=== PATIENT | male | born 1950 | race African-American/Black ===

== ENCOUNTER 2025-02-19 07:01 | Inpatient (IN) | payer MEDICARE, OTHER ==
[~2025-02-19] VITALS: Ht 167.6 cm; Wt 77.2 kg
[~2025-02-19 07:01] MED LIST: ANESTHESIA TRAY IN PYXIS 1 EA TRAY MC ONE; LIDOCAINE 2%-EPI 1:100,000 30 ML VIAL ONE; VANCOMYCIN 1 GM VIAL ONE; dexaMETHasone SOD PHOSPHATE 1 ML ONE
[2025-02-19] MEDS ORDERED: LIDOCAINE 2% JEL UROJET 10 ML MM ONE (07:08)
[2025-02-19] MEDS ORDERED: KETAMINE HCL (500MG/10ML) 50 MG/ML VIAL ONE (07:09)
[2025-02-19] MEDS ORDERED: MIDAZOLAM HCL 2 MG/2ML VIAL ONE (07:09)
[2025-02-19] MEDS ORDERED: SUGAMMADEX SODIUM 200 MG/2 ML VIAL IV ONE (07:09)
[2025-02-19] MEDS ORDERED: FENTANYL PF 100MCG/2ML AMPUL ONE (07:09)
[2025-02-19] MEDS ORDERED: ROCURONIUM BROMIDE 50 MG/5 ML ONE (07:10)
[2025-02-19] MEDS ORDERED: FAMOTIDINE/PF INJ 20 MG/2 ML VIAL IV ONE (07:10)
[2025-02-19] MEDS ORDERED: OXYMETAZOLINE HCL NASAL SPRAY 30 ML BOTTLE NS ONE (07:10)
[2025-02-19 10:05] VITALS: BP 138/67; TEMP 97.5; O2SAT 98
[2025-02-19 10:20] VITALS: BP 134/64; TEMP 97.8; O2SAT 98
[2025-02-19 10:35] VITALS: BP 132/66; TEMP 97.6; O2SAT 98
[2025-02-19] MEDS ORDERED: ACETAMINOPHEN 325 MG TABLET PO PRN ×2 (11:00→13:30)
[2025-02-19] MEDS ORDERED: ONDANSETRON HCL/PF 4 MG/2 ML VIAL IV PRN (11:00)
[2025-02-19] MEDS: IV NS 0.9% 1,000 ML IV PRN (11:27)
[2025-02-19] MEDS ORDERED: GABA300C PO (12:16)
[2025-02-19] MEDS ORDERED: TAMS-12 PO (12:16)
[2025-02-19] MEDS ORDERED: MELA5TAB PO (12:16)
[2025-02-19] MEDS ORDERED: LEVO200T PO (12:16)
[2025-02-19] MEDS ORDERED: TRAZ150T75 PO (12:16)
[2025-02-19] MEDS ORDERED: PARO25TA15 PO (12:16)
[2025-02-19] MEDS ORDERED: OXYB15TA19 PO (12:16)
[2025-02-19] MEDS ORDERED: MAGNESIUM HYDROXIDE 30 ML UDC PO PRN (13:30)
[2025-02-19] MEDS ORDERED: ONDANSETRON HCL/PF 4 MG/2 ML VIAL IVP PRN (13:30)
[2025-02-19] MEDS: MENTHOL/CETYLPYRD (CEPACOL) 1 LOZ LOZENGE PO PRN (15:28)
[2025-02-19 16:00] VITALS: BP 144/63; TEMP 97.2; O2SAT 96
[2025-02-19] MEDS: GABAPENTIN 300 MG CAPSULE PO SCH (17:21)
[2025-02-19] MEDS ORDERED: TRAZODONE 50 MG TABLET PO SCH (18:00)
[2025-02-19] MEDS: VANCOMYCIN 1 GM in IV D5W 250ml IV SCH (18:08)
[2025-02-19 20:00] VITALS: BP 135/68; TEMP 97.9; O2SAT 96
[2025-02-19] MEDS: TRAZODONE 50 MG TABLET PO SCH (20:18)
[2025-02-19] MEDS: TAMSULOSIN 0.4 MG CAP.SR.24H PO SCH (20:18)
[2025-02-19] MEDS: MAG HYDROX/AL HYDROX/SIMETH 30 ML UDC PO PRN (20:18)
[2025-02-19] MEDS: HYDROMORPHONE 1 MG/1 ML DISP.SYRIN IV PRN (21:20)
[2025-02-20 08:00] VITALS: BP 137/59; TEMP 97.7; O2SAT 98
[2025-02-20] MEDS: PANTOPRAZOLE 40 MG VIAL IV SCH (08:08)
[2025-02-20] MEDS: LEVOTHYROXINE SODIUM 100 MCG TABLET PO SCH (08:08)
[2025-02-20] MEDS: OXYBUTYNIN CHLORIDE ER 5 MG TAB PO SCH (08:09)
[2025-02-20] MEDS ORDERED: TAMSULOSIN 0.4 MG CAP.SR.24H PO SCH ×2 (09:00→21:00)
[2025-02-20] MEDS ORDERED: PAROXETINE HCL 25 MG PO SCH (09:00)
== END 2025-02-20 10:20 | disposition home or self-care (01) | DRG 141 ==
LOC: DS 07:01 → MED 10:30
PROVIDERS: ATTEND Internal Medicine
PROC: 0NUT07Z Supplement Right Mandible with Autologous Tissue Substitute, Open Approach (ICD-10-PCS; 2025-02-19)
PROC: 0N5T0ZZ Destruction of Right Mandible, Open Approach (ICD-10-PCS; 2025-02-19)
PROC: 0NST04Z Reposition Right Mandible with Internal Fixation Device, Open Approach (ICD-10-PCS; principal; 2025-02-19 07:30)
DX: S02.609A Fracture of mandible, unspecified, initial encounter for closed fracture (principal); M87.9 Osteonecrosis, unspecified; X58.XXXA Exposure to other specified factors, initial encounter; Y92.9 Unspecified place or not applicable; M27.2 Inflammatory conditions of jaws; I10 Essential (primary) hypertension; C61 Malignant neoplasm of prostate; I25.10 Atherosclerotic heart disease of native coronary artery without angina pectoris; G47.00 Insomnia, unspecified; E03.9 Hypothyroidism, unspecified; Z95.5 Presence of coronary angioplasty implant and graft; Z82.49 Family history of ischemic heart disease and other diseases of the circulatory system; D16.5 Benign neoplasm of lower jaw bone; D03.9 Melanoma in situ, unspecified
CPT/HCPCS: 87081-TC; 88305-TC; 88311-TC; A4223; A4338; C1713; G0378; J1100; J1171; J1308; J1885; J2250; J2470; J2704; J3010; J3373; J3490; J7030; J7060